=== PATIENT | female | born 1940 | race African-American/Black ===

== ENCOUNTER 2018-02-07 22:33 | Emergency (ER) | payer OTHER ==
[~2018-02-07] VITALS: Ht 172.7 cm; Wt 92.1 kg
[2018-02-08 00:36] VITALS: BP 126/62
== END 2018-02-08 00:37 | disposition home or self-care (01) ==
LOC: ER 22:33
DX: T78.3XXA Angioneurotic edema, initial encounter (principal); I10 Essential (primary) hypertension; E11.9 Type 2 diabetes mellitus without complications

== ENCOUNTER 2018-02-12 13:05 | Emergency (ER) | payer OTHER ==
[~2018-02-12] VITALS: Ht 175.3 cm; Wt 92.1 kg
--- NOTE | ~2018-02-12 | EKG ---
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
[2018-02-12 14:28] LABS: URINE BILIRUBIN NEGATIVE (Negative); URINE BLOOD NEGATIVE (Negative); URINE CLARITY CLEAR; URINE COLOR YELLOW; URINE GLUCOSE-RANDOM* NEGATIVE (Negative); URINE KETONES NEGATIVE (Negative); URINE LEUKOCYTES 1+ (Negative); URINE NITRITE NEGATIVE (Negative); URINE PROTEIN (DIPSTICK) NEGATIVE (Negative); URINE SPECIFIC GRAVITY 1.015 (1.005-1.035); URINE UROBILINOGEN 0.2 E.U./dl (0.2-1.0)
[2018-02-12 14:35] LABS: CASTS None Seen /LPF (None Seen); SQUAMOUS 4-10 Moderate /LPF (0-3)
[2018-02-12 14:36] LABS: BACTERIA None Seen /HPF (None Seen); CRYSTALS None Seen /LPF (None Seen); MUCUS 4-6 Moderate strn/LPF (None Seen); URINE RBC 0-2 Rare /HPF (0-2); URINE WBC 0-5 Rare /HPF (0-5)
[2018-02-12 14:54] LABS: ABSOLUTE NEUTROPHILS 10.1 thou/uL (1.4-8.2); BASOPHILS 0.6 % (0.0-2.0); EOSINOPHILS 2.4 % (0.0-3.0); HEMATOCRIT 37.6 % (37.0-47.0); HEMOGLOBIN 12.8 gm/dL (12.0-15.0); LYMPHOCYTES 24.4 % (24.0-44.0); MCH 30.6 pg (26.0-34.0); MCV 89.9 fL (80.0-100.0); MONOCYTES 4.3 % (1.0-8.0); PLATELET COUNT 295 thou/uL (150-400); POLYS 68.3 % (36.0-66.0); RBC 4.18 mil/uL (4.20-5.00); RDW 12.5 % (10.5-14.5); WBC 14.8 thou/uL (4.0-11.0)
[2018-02-12 15:02] LABS: ANION GAP 6 mmol/L (7-16); BUN 26 mg/dL (7-18); CALCIUM 10.2 mg/dL (8.5-10.1); CHLORIDE 103 mmol/L (98-107); CO2 33 mmol/L (21-32); CREATININE 1.4 mg/dL (0.6-1.0); GLUCOSE 69 mg/dL (74-106); POTASSIUM 4.3 mmol/L (3.5-5.1); SODIUM 142 mmol/L (136-145)
[2018-02-12 15:08] LABS: ALBUMIN 3.7 g/dL (3.4-5.0); DIRECT BILIRUBIN < 0.1 mg/dL (<0.1-0.3); LIPASE 205 U/L (73-393); SGOT 31 U/L (15-37); SGPT 48 U/L (30-65); TOTAL BILIRUBIN 0.2 mg/dL (<0.1-1.0); TOTAL PROTEIN 8.1 g/dL (6.4-8.2)
[2018-02-12] MEDS ORDERED: TESSALON PERLE100 MG PO (16:00)
[2018-02-12] MEDS ORDERED: VENTOLIN HFA 1818 GM INH (16:00)
[2018-02-12 16:33] VITALS: BP 179/99
== END 2018-02-12 16:35 | disposition home or self-care (01) ==
LOC: ER 13:05
PROVIDERS: Nurse Practitioner
DX: J18.9 Pneumonia, unspecified organism (principal); I10 Essential (primary) hypertension; E11.9 Type 2 diabetes mellitus without complications

== ENCOUNTER 2020-02-26 19:37 | Emergency (ER) | payer OTHER ==
[~2020-02-26] VITALS: Ht 172.7 cm; Wt 96.2 kg
[~2020-02-26 19:37] MED LIST: TESSALON PERLE100 MG PO; VENTOLIN HFA 1818 GM INH
[2020-02-26 20:39] LABS: HEMATOCRIT 35.5 % (37.0-47.0); HEMOGLOBIN 12.3 gm/dL (12.0-15.0); MCH 30.6 pg (26.0-34.0); MCHC 34.7 g/dL (28.0-37.0); MCV 88.1 fL (80.0-100.0); RBC 4.03 mil/uL (4.20-5.00); RDW 14.1 % (10.5-14.5); WBC 9.3 thou/uL (4.0-11.0)
[2020-02-26 20:50] LABS: ANION GAP 5 mmol/L (7-16); BUN 22 mg/dL (7-18); CALCIUM 9.8 mg/dL (8.5-10.1); CHLORIDE 99 mmol/L (98-107); CO2 31 mmol/L (21-32); CREATININE 1.3 mg/dL (0.6-1.0); GLUCOSE 198 mg/dL (74-106); POTASSIUM 3.6 mmol/L (3.5-5.1); SODIUM 135 mmol/L (136-145)
[2020-02-26 20:59] LABS: ALBUMIN 4.1 g/dL (3.4-5.0); SGOT 21 U/L (15-37); SGPT 29 U/L (30-65); TOTAL BILIRUBIN 0.3 mg/dL (<0.1-1.0); TOTAL PROTEIN 8.3 g/dL (6.4-8.2); TROPONIN-I <0.06 ng/mL (<0.06)
[2020-02-26 21:29] VITALS: BP 125/68
--- NOTE | 2020-02-27 08:42 | EKG ---
[facility] [place] [address] ELECTROCARDIOGRAM REPORT Name: MASSIMO SOLO Room #: DEP [facility]#: [id number] Admission: 02/26/20 Attend Phys: Discharge: 02/26/20 Date of : 42 Report #: [id number] THIS REPORT FOR: cc: FLORES - Eliana family physician/PCP FLORES - Eliana family physician/PCP Mario Cornejo MD [facility] THIS REPORT FOR: //name// 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 : 1940 Requested By: Yandel Duarte Order Number: [id number] MD: Mario Cornejo Measurements Intervals [place] Rate: 77 P: 66 OK: 155 QRS: 14 QRSD: 117 T: 50 QT: 417 QTc: 472 Interpretive Statements Incomplete analysis due to missing data in precordial lead(s) Sinus rhythm Atrial premature complex Nonspecific intraventricular conduction delay Missing lead(s): V4 Compared to ECG 02/12/2018 14:48:36 Atrial premature complex(es) now present Electronically Signed On 02-27-2020 8:40:55 CDT by Mario Cornejo [email or web address] <ELECTRONICALLY SIGNED> By: Mario Cornejo MD, FAC 02/27/20 0840 05 05 Mario Cornejo MD, FAC /EPI
== END 2020-02-26 21:20 | disposition home or self-care (01) ==
LOC: ER 19:37
PROVIDERS: Emergency Medicine
DX: R07.89 Other chest pain (principal); R09.81 Nasal congestion; J34.89 Other specified disorders of nose and nasal sinuses; R06.02 Shortness of breath; J45.909 Unspecified asthma, uncomplicated; I10 Essential (primary) hypertension; E11.9 Type 2 diabetes mellitus without complications; Z88.8 Allergy status to other drugs, medicaments and biological substances; Z91.018 Allergy to other foods

== ENCOUNTER 2021-10-27 12:54 | Emergency (ER) | payer OTHER ==
[~2021-10-27] VITALS: Ht 172.7 cm; Wt 93.4 kg
[2021-10-27 13:50] VITALS: BP 156/108
== END 2021-10-27 14:41 | disposition home or self-care (01) ==
LOC: ER 12:54
DX: U07.1 COVID-19 (principal); J06.9 Acute upper respiratory infection, unspecified; E11.9 Type 2 diabetes mellitus without complications; J45.909 Unspecified asthma, uncomplicated; E78.00 Pure hypercholesterolemia, unspecified; I11.0 Hypertensive heart disease with heart failure; I50.9 Heart failure, unspecified; Z79.51 Long term (current) use of inhaled steroids; Z79.899 Other long term (current) drug therapy; Z91.041 Radiographic dye allergy status; Z91.018 Allergy to other foods